=== PATIENT | male | born 1960 | race Caucasian/White ===

== ENCOUNTER 2018-02-27 13:55 | Emergency (ER) | payer OTHER, SELFPAY ==
[2018-02-27 14:10] VITALS: BP 153/90; PULSE 67; RESP 16; TEMP 36.6; O2SAT 99; BMI 27.7
--- NOTE | 2018-02-27 16:07 | ED.SKABFB ---
HPI - Skin/Abscess/Foreign Bdy <LAUREEN Peñaloza - Last Filed: 02/28/18 12:14> General Chief complaint: Skin/Abscess/Foreign Body Stated complaint: HIT ON BACK OF HEAD,GASH Time Seen by Provider: 02/27/18 16:06 Related Data Previous Rx's Medication Instructions Recorded sildenafil (antihypertensive) 5 tab PO NEEDED PRN #20 tab 01/21/17 lorazepam 0 mg PO BIDP PRN #15 tab 03/10/17 Allergies Allergy/AdvReac Type Severity Reaction Status Date / Time CAT DANDER Allergy Mild SNEZZING/IT Uncoded 11/05/17 12:23 LIZZETTE PENICILLIN Allergy Mild SWELLING Uncoded 11/05/17 12:23 Review of Systems <LAUREEN Peñaloza - Last Filed: 02/28/18 12:14> Review of Systems All systems reviewed & are unremarkable except as noted in HPI and below Constitutional Denies chills, Denies fever(s), Denies lethargy and Denies weakness Eyes Denies change in vision, Denies eye discharge, Denies irritation and Denies loss of vision ENT Ears, Nose, Mouth, and Throat: Denies change in voice, Denies neck pain and Denies sore throat Cardiovascular Denies chest pain, Denies irregular heart rhythm, Denies lightheadedness, Denies palpitations, Denies dyspnea, Denies dyspnea on exertion and Denies orthopnea Respiratory Denies cough, Denies dyspnea, Denies dyspnea on exertion and Denies wheezing Gastrointestinal Gastrointestinal: Denies abdominal pain, Denies change in bowel habits, Denies diarrhea, Denies nausea and Denies vomiting Genitourinary Denies hematuria, Denies flank pain, Denies urinary incontinence and Denies urinary urgency Musculoskeletal Denies neck pain Integumentary/Breasts Denies pruritus, Denies erythema, Denies rash and Denies wounds Neurologic Denies confusion, Denies loss of vision and Denies weakness Psychiatric Denies anxiety, Denies confusion, Denies depression, Denies homicidal ideation and Denies suicidal ideation Endocrine Denies palpitations Hematologic/Lymphatic Denies easy bruising Allergic/Immunologic Denies wheezing Exam <LAUREEN Peñaloza - Last Filed: 02/28/18 12:14> Initial Vital Signs Initial Vital Signs: Vital Signs Temperature 97.8 F 02/27/18 14:10 Pulse Rate 67 02/27/18 14:10 Respiratory Rate 16 02/27/18 14:10 Blood Pressure 153/90 H 02/27/18 14:10 Pulse Oximetry 99 02/27/18 14:10 Const General: cooperative and well developed Nutritional Appearance: well nourished Orientation: alert, awake, oriented x3 and not confused [facility] Head: normocephalic and atraumatic Ears: external ears normal and TM's normal bilaterally Nose: external nose normal and No nasal discharge Face and sinus: sinuses nontender, face symmetric, no sinus tenderness and No dry mucous membranes Mouth: oral mucosae normal and moist mucous membranes Teeth and gingiva: dentition normal Throat: tonsils normal and uvula midline Eyes General: appearance normal, both eyes and all related structures Eyelids: eyelids normal Conjunctivae: conjunctivae normal Sclera: sclerae normal Pupils: PERRL EOM: EOM intact bilaterally Neck Neck: normal visual inspection, trachea midline, No lymphadenopathy, No midline deformity and No JVD Lymphatic: No lymphedema Chest Chest: normal inspection of the chest Resp Effort & Inspection: normal respiratory effort, able to speak in complete sentences, no respiratory distress and no use of accessory muscles Auscultation: clear to auscultation bilaterally, no rales, no rhonchi and no wheezes Cardio Rate: regular rate Rhythm: regular rhythm Heart Sounds: no click, no gallops, no murmurs and no rubs Pulses: normal peripheral pulses GI Inspection: non-distended Palpation: soft, no hepatosplenomegaly, No guarding, No pulsatile mass and No tender Auscultation: normal bowel sounds Back/Spine/Pelvis Back: No CVA tenderness Cervical Spine: cervical ROM normal and No pain with cervical ROM Thoracic/Lumbar Spine: thoracic and lumbar spine normal to inspection Skin General: no rashes or lesions noted, No jaundice and No petechiae Neuro General: alert, oriented x3, gait normal and no focal motor deficits Speech: speech normal Extrem General: full ROM, no clubbing, cyanosis or edema, no pedal edema and no calf tenderness Psych Appearance: well kempt Mental Status: mental status grossly normal Attitude: cooperative Thought Content: normal and suicidality Judgment: judgment good <Héctor Mueller MD - Last Filed: 03/02/18 08:43> Initial Vital Signs Initial Vital Signs: Vital Signs Temperature 97.8 F 02/27/18 14:10 Pulse Rate 67 02/27/18 14:10 Respiratory Rate 16 02/27/18 14:10 Blood Pressure 153/90 H 02/27/18 14:10 Pulse Oximetry 99 02/27/18 14:10 Course <LAUREEN Peñaloza - Last Filed: 02/28/18 12:14> Orders Ordered: Discontinued Medications Diphtheria/Tetanus/Acell Pertussis (Adacel) 0.5 ml IM .ONCE ONE Stop: 02/27/18 16:05 Last Admin: 02/27/18 16:08 Dose: 0.5 ml Vital Signs - 8 hr 02/27/18 14:10 Temperature 97.8 F Pulse Rate 67 Respiratory Rate 16 Blood Pressure 153/90 H Pulse Oximetry 99 <Héctor Mueller MD - Last Filed: 03/02/18 08:43> Orders Ordered: Discontinued Medications Diphtheria/Tetanus/Acell Pertussis (Adacel) 0.5 ml IM .ONCE ONE Stop: 02/27/18 16:05 Last Admin: 02/27/18 16:08 Dose: 0.5 ml Vital Signs - 8 hr 02/27/18 14:10 Temperature 97.8 F Pulse Rate 67 Respiratory Rate 16 Blood Pressure 153/90 H Pulse Oximetry 99 Discharge Plan Departure Patient Disposition: Home, Self-Care Clinical Impression: Laceration Discharge Date/Time: 02/27/18 16:57 Interventions: ED Discharge Assessment Last Done: 02/27/18 16:55 Activity Restrictions/Additional Instructions: You were in seen in the [facility] Emergency Department for evaluation of injuries after striking her head on a vehicle. You have a laceration that was repaired with ana. These will need to be removed in approximately 7 days. Please read and follow all of the instructions below. Please follow up with your primary care physician in 7 days for stable removal. If you have any new symptoms or if you are at all concerned about your health please return immediately to the emergency department. If you do not have a primary care physician, please contact [facility], [facility] at [phone], [facility] at [phone], or [facility] at [phone] to arrange follow up care. If you have health insurance, please also contact your insurer for a list of accepting providers under your policy, you may contact these providers for further health care. Your care today was limited to identifying and treating emergent medical problems only. Many people have subtle differences in their test results that require follow up with their outpatient physician(s) to correctly determine if this represents a normal variation or concerning abnormality with respect to your specific health. The care given to you today was limited to identifying and treating emergent medical problems - you need to request a copy of all of your medical records from today's visit and follow up with your outpatient physician(s) to review both today's visit and your overall health. Wound Care - Ana See your primary care physician or go to urgent care in 7 days to have your ana removed. Please call ahead to check that they have a staple removal tool. * Keep your wound dry and covered with a clean bandage. * Keep the wound dry when showering for the first 24 hours. After 24 hours you may gently wash the wound with soap and water and blot dry with a clean towel. * You may cover the wound with an antibiotic ointment and a clean bandage. * Do not soak the wound (swimming, bathtubs, hotpools, etc.) until the sutures are removed. * Your wound may form a scar. This scar should partially reduce over the next year. You can minimize the scar by applying sunscreen to the scar whenever you go outside for the next year. The tissue that makes up the scar lacks the cells that allow skin to anders, this allows sunlight to damage this skin more easily. * You may take ibuprofen as directed below for pain. Call your doctor or return to the emergency department if you develop any of the following: * Redness at the wound. * Increasing pain. * Discharge, pus, or swelling at the wound. * Fevers, chills, or feeling unwell. * If you sustained a cut that could have caused a foreign body to enter your wound, please be aware that pieces of the foreign body may avoid detection during your emergency department evaluation. Some types of foreign bodies are very difficult to detect. Despite careful evaluation there is a small risk that you might have retained material in your wound. Rarely this material will lead to increasing pain, redness, swelling, discharge, pain, and infection. Please return immediately if you have any of these signs. * If you are otherwise concerned about your health. Ibuprofen (Brand Names: Motrin, Advil) * Take as directed on the bottle. * Do not take for more than 7 days. * This medication may cause a mildly upset stomach, if so take it with a small snack. Stop taking it if you have persistent abdominal pain, heartburn, or any stomach pain. Do not take this medication if you have known ulcers. * Do not take with Naproxen Sodium (brand name: Aleve) or other non-steroidal antiiflammatory medications that you may be prescribed (e.g. Diclofenac, Etodolac, Indomethicin) WARNING: This drug may infrequently cause serious (rarely fatal) bleeding from the stomach or intestines. Also, related drugs rarely have caused blood clots to form, resulting in heart attacks and strokes. This medication might also rarely cause similar problems. Talk to your doctor or pharmacist about the benefits and risks of treatment, as well as other possible medication choices. If you notice any of the following rare but very serious side effects, stop taking ibuprofen and seek immediate medical attention: black stools, persistent stomach/abdominal pain, vomit that looks like coffee grounds, chest pain, weakness on one side of the body, sudden vision changes, slurred speech. SIDE EFFECTS: Upset stomach, nausea, vomiting, heartburn, headache, diarrhea, constipation, drowsiness, and dizziness may occur. If any of these effects persist or worsen, notify your doctor or pharmacist promptly. If your doctor has directed you to use this medication, remember that he or she has judged that the benefit to you is greater than the risk of side effects. Many people using this medication do not have serious side effects. Tell your doctor immediately if any of these serious side effects occur: stomach pain, swelling of the hands or feet, sudden or unexplained weight gain, ringing in the ears (tinnitus). Tell your doctor immediately if any of these unlikely but serious side effects occur: vision changes, rapid or pounding heartbeat, easy bruising or bleeding, difficult/painful swallowing. Tell your doctor immediately if any of these highly unlikely but very serious side effects occur: change in amount of urine, severe headache, very stiff neck, mental/mood changes, persistent sore throat or fever. This drug may rarely cause serious (possibly fatal) liver disease. If you notice any of the following highly unlikely but very serious side effects, stop taking ibuprofen and consult your doctor or pharmacist immediately: yellowing eyes and skin, dark urine, unusual/extreme tiredness. An allergic reaction to this drug is unlikely, but seek immediate medical attention if it occurs. Symptoms of an allergic reaction include: rash, itching/swelling (especially of the face/tongue/throat), severe dizziness, trouble breathing. This is not a complete list of possible side effects. DRUG INTERACTIONS: Your healthcare professionals (e.g., doctor or pharmacist) may already be aware of any possible drug interactions and may be monitoring you for it. Do not start, stop or change the dosage of any medicine before checking with them first. This drug should not be used with the following medications because very serious interactions may occur: cidofovir, ketorolac. If you are currently using any of these medications listed above, tell your doctor or pharmacist before starting ibuprofen. Before using this medication, tell your doctor or pharmacist of all prescription and nonprescription/herbal products you may use, especially of: anti-platelet drugs (e.g., cilostazol, clopidogrel), oral bisphosphonates (e.g., alendronate), other medications for arthritis (e.g., aspirin, methotrexate), blood thinners (e.g., enoxaparin, heparin, warfarin), corticosteroids (e.g., prednisone), cyclosporine, desmopressin, high blood pressure drugs (including ANETTE inhibitors such as captopril, angiotensin II receptor antagonists such as losartan, and beta-blockers such as metoprolol), lithium, pemetrexed, water pills (diuretics such as furosemide, hydrochlorothiazide, triamterene). Check all prescription and nonprescription medicine labels carefully for other pain/fever drugs (NSAIDs such as aspirin, celecoxib, naproxen). These drugs are similar to ibuprofen, so taking one of these drugs while also taking ibuprofen may increase your risk of side effects. Consult your doctor or pharmacist for more details. However, if your doctor has prescribed low doses of aspirin to prevent heart attack or stroke (usually at dosages of 81-325 milligrams a day), you should continue to take the aspirin. Daily use of ibuprofen may decrease aspirin's ability to prevent heart attack/stroke. Talk to your doctor about using a different medication (e.g., acetaminophen) to treat pain/fever. If you must take ibuprofen, talk to your doctor about possibly taking immediate-release aspirin (not enteric-coated) while also taking the ibuprofen dose apart from your aspirin dose. Do not increase your daily dose of aspirin or change the way you take aspirin/other medications without your doctor's approval. This document does not contain all possible interactions. Therefore, before using this product, tell your doctor or pharmacist of all the products you use. Keep a list of all your medications with you, and share the list with your doctor and pharmacist. High Blood Pressure (Hypertension) When you were in the emergency department you had an abnormally high blood pressure. High blood pressure can be without symptoms. However high blood pressure can lead to many medical problems including kidney disease, strokes, and heart attacks. Your blood pressure may have been elevated due to pain or the stress of being in the emergency department, however half of people with an elevated blood pressure in the emergency department have retirement problems with high blood pressure. Please see your primary care physician in 2-3 days for a repeat check of your blood pressure. This may help prevent many health serious problems in the future. Please return to the emergency department if you develop any of the following: chest pain, shortness of breath, new or severe headache, changes in vision or hearing, weakness, or if you are otherwise concerned about your health. Prescriptions: No Action sildenafil (antihypertensive) 20 MG tablet 5 tab PO NEEDED PRNQty: 20 RF: 4 lorazepam 1 MG tablet PO BIDP PRNQty: 15 RF: 0 <Héctor Mueller MD - Last Filed: 03/02/18 08:43> Sign Out Provider Sign Out Attestation: The PA/PURCHASING MANAGER/SALES functioned independently for the care of this pt, I was available, but not asked to participate in care. I am unable to determine appropriateness of management without personally examining the pt.
[2018-02-27] MEDS: TET,DIPH,PERTUSS(ACELL),VAC/PF 0.5 ML SYRINGE IM (16:08)
--- NOTE | 2018-02-27 16:41 | ED.SKABFB ---
HPI - Skin/Abscess/Foreign Bdy General Chief complaint: Skin/Abscess/Foreign Body Stated complaint: HIT ON BACK OF HEAD,GASH Time Seen by Provider: 02/27/18 16:06 History of Present Illness HPI narrative: HPI 57-year-old male presents for evaluation of a 2.5 cm long laceration on the left lateral occiput after he bumped his head against the trunk of a car. Patient without LOC, lightheadedness, changes in vision or hearing, takes no anticoagulants, no antiplatelet agents, no known coagulopathies. ROS with no recent constitutional symptoms. Exam Gen: Pleasant, nontoxic-appearing, resting comfortably. HEENT: left posterior occiput with a vertically oriented 2.5 cm long laceration that is approximately 4 mm deep. No foreign bodies visualized. Otherwise NC, AT, no surrounding bony tenderness palpation, PEERL, EOMI. Resp: Unlabored respirations with a normal work of breathing. Card: Extremities warm and well perfused. GI: Non-distended. : Deferred MSK: No visible deformities, strength and tone without visually appreciable deficit. Neuro: AO x 3, no facial asymmetry, vision and hearing WNL. Heme/Lymph: Deferred Skin: Normal color with no visible lesions (other than noted above). Psych: Mood and affect appropriate. MDM Previous chart, nursing note, and vitals reviewed. A/P: 57-year-old male presents for evaluation of a 2.5 cm long laceration on the left lateral occiput after he bumped his head against the trunk of a car. Wound repaired as below. Tdap booster given. No identifiable risk factors for clinically significant head injury. Patient discharged with instructions for stable removal in 7 days. Return to care precautions provided. Laceration Repair Verbal consent obtained. Wound cleaned with ~120 mL sterile saline. No debriding of tissue required. No foreign bodies removed, entirety of wound well visualized with no remaining foreign bodies appreciated. Using a clean procedure the wound was repaired with 6 jayesh. No undermining required, patient tolerated the procedure well without apparent complications. Impression: laceration (please reference below for remainder of encounter information) Patient was notified of their elevated blood pressure and recommended to follow up with their primary care physician. As the patient is without evidence of acute end organ dysfunction no further emergent evaluation is indicated as per the 2013 [facility] clinical policy. Related Data Previous Rx's Medication Instructions Recorded doxycycline hyclate 100 mg PO BID #14 cap 01/21/17 sildenafil (antihypertensive) 5 tab PO NEEDED PRN #20 tab 01/21/17 lorazepam 0 mg PO BIDP PRN #15 tab 03/10/17 Allergies Allergy/AdvReac Type Severity Reaction Status Date / Time CAT DANDER Allergy Mild SNEZZING/IT Uncoded 11/05/17 12:23 LIZZETTE PENICILLIN Allergy Mild SWELLING Uncoded 11/05/17 12:23 PFSH Social History Smoking Status: Never smoker Exam Initial Vital Signs Initial Vital Signs: Vital Signs Temperature 97.8 F 02/27/18 14:10 Pulse Rate 67 02/27/18 14:10 Respiratory Rate 16 02/27/18 14:10 Blood Pressure 153/90 H 02/27/18 14:10 Pulse Oximetry 99 02/27/18 14:10 Course Orders Ordered: Discontinued Medications Diphtheria/Tetanus/Acell Pertussis (Adacel) 0.5 ml IM .ONCE ONE Stop: 02/27/18 16:05 Last Admin: 02/27/18 16:08 Dose: 0.5 ml Vital Signs - 8 hr 02/27/18 14:10 Temperature 97.8 F Pulse Rate 67 Respiratory Rate 16 Blood Pressure 153/90 H Pulse Oximetry 99 Discharge Plan Departure Prescriptions: No Action sildenafil (antihypertensive) 20 MG tablet 5 tab PO NEEDED PRNQty: 20 RF: 4 doxycycline hyclate 100 MG capsule 100 mg PO BID Qty: 14 RF: 0 lorazepam 1 MG tablet PO BIDP PRNQty: 15 RF: 0
[2018-02-27 16:51] VITALS: BP 157/85; PULSE 69; RESP 16; TEMP 36.1; O2SAT 98
--- NOTE | 2018-02-28 12:13 | ED_ITS ---
HPI - Skin/Abscess/Foreign Bdy <LAUREEN Peñaloza - Last Filed: 02/28/18 12:14> General Chief complaint: Skin/Abscess/Foreign Body Stated complaint: HIT ON BACK OF HEAD,GASH Time Seen by Provider: 02/27/18 16:06 Related Data Previous Rx's Medication Instructions Recorded sildenafil (antihypertensive) 5 tab PO NEEDED PRN #20 tab 01/21/17 lorazepam 0 mg PO BIDP PRN #15 tab 03/10/17 Allergies Allergy/AdvReac Type Severity Reaction Status Date / Time CAT DANDER Allergy Mild SNEZZING/IT Uncoded 11/05/17 12:23 LIZZETTE PENICILLIN Allergy Mild SWELLING Uncoded 11/05/17 12:23 Review of Systems <LAUREEN Peñaloza - Last Filed: 02/28/18 12:14> Review of Systems All systems reviewed & are unremarkable except as noted in HPI and below Constitutional Denies chills, Denies fever(s), Denies lethargy and Denies weakness Eyes Denies change in vision, Denies eye discharge, Denies irritation and Denies loss of vision ENT Ears, Nose, Mouth, and Throat: Denies change in voice, Denies neck pain and Denies sore throat Cardiovascular Denies chest pain, Denies irregular heart rhythm, Denies lightheadedness, Denies palpitations, Denies dyspnea, Denies dyspnea on exertion and Denies orthopnea Respiratory Denies cough, Denies dyspnea, Denies dyspnea on exertion and Denies wheezing Gastrointestinal Gastrointestinal: Denies abdominal pain, Denies change in bowel habits, Denies diarrhea, Denies nausea and Denies vomiting Genitourinary Denies hematuria, Denies flank pain, Denies urinary incontinence and Denies urinary urgency Musculoskeletal Denies neck pain Integumentary/Breasts Denies pruritus, Denies erythema, Denies rash and Denies wounds Neurologic Denies confusion, Denies loss of vision and Denies weakness Psychiatric Denies anxiety, Denies confusion, Denies depression, Denies homicidal ideation and Denies suicidal ideation Endocrine Denies palpitations Hematologic/Lymphatic Denies easy bruising Allergic/Immunologic Denies wheezing Exam <LAUREEN Peñaloza - Last Filed: 02/28/18 12:14> Initial Vital Signs Initial Vital Signs: Vital Signs Temperature 97.8 F 02/27/18 14:10 Pulse Rate 67 02/27/18 14:10 Respiratory Rate 16 02/27/18 14:10 Blood Pressure 153/90 H 02/27/18 14:10 Pulse Oximetry 99 02/27/18 14:10 Const General: cooperative and well developed Nutritional Appearance: well nourished Orientation: alert, awake, oriented x3 and not confused [facility] Head: normocephalic and atraumatic Ears: external ears normal and TM's normal bilaterally Nose: external nose normal and No nasal discharge Face and sinus: sinuses nontender, face symmetric, no sinus tenderness and No dry mucous membranes Mouth: oral mucosae normal and moist mucous membranes Teeth and gingiva: dentition normal Throat: tonsils normal and uvula midline Eyes General: appearance normal, both eyes and all related structures Eyelids: eyelids normal Conjunctivae: conjunctivae normal Sclera: sclerae normal Pupils: PERRL EOM: EOM intact bilaterally Neck Neck: normal visual inspection, trachea midline, No lymphadenopathy, No midline deformity and No JVD Lymphatic: No lymphedema Chest Chest: normal inspection of the chest Resp Effort & Inspection: normal respiratory effort, able to speak in complete sentences, no respiratory distress and no use of accessory muscles Auscultation: clear to auscultation bilaterally, no rales, no rhonchi and no wheezes Cardio Rate: regular rate Rhythm: regular rhythm Heart Sounds: no click, no gallops, no murmurs and no rubs Pulses: normal peripheral pulses GI Inspection: non-distended Palpation: soft, no hepatosplenomegaly, No guarding, No pulsatile mass and No tender Auscultation: normal bowel sounds Back/Spine/Pelvis Back: No CVA tenderness Cervical Spine: cervical ROM normal and No pain with cervical ROM Thoracic/Lumbar Spine: thoracic and lumbar spine normal to inspection Skin General: no rashes or lesions noted, No jaundice and No petechiae Neuro General: alert, oriented x3, gait normal and no focal motor deficits Speech: speech normal Extrem General: full ROM, no clubbing, cyanosis or edema, no pedal edema and no calf tenderness Psych Appearance: well kempt Mental Status: mental status grossly normal Attitude: cooperative Thought Content: normal and suicidality Judgment: judgment good <Héctor Mueller MD - Last Filed: 03/02/18 08:43> Initial Vital Signs Initial Vital Signs: Vital Signs Temperature 97.8 F 02/27/18 14:10 Pulse Rate 67 02/27/18 14:10 Respiratory Rate 16 02/27/18 14:10 Blood Pressure 153/90 H 02/27/18 14:10 Pulse Oximetry 99 02/27/18 14:10 Course <LAUREEN Peñaloza - Last Filed: 02/28/18 12:14> Orders Ordered: Discontinued Medications Diphtheria/Tetanus/Acell Pertussis (Adacel) 0.5 ml IM .ONCE ONE Stop: 02/27/18 16:05 Last Admin: 02/27/18 16:08 Dose: 0.5 ml Vital Signs - 8 hr 02/27/18 14:10 Temperature 97.8 F Pulse Rate 67 Respiratory Rate 16 Blood Pressure 153/90 H Pulse Oximetry 99 <Héctor Mueller MD - Last Filed: 03/02/18 08:43> Orders Ordered: Discontinued Medications Diphtheria/Tetanus/Acell Pertussis (Adacel) 0.5 ml IM .ONCE ONE Stop: 02/27/18 16:05 Last Admin: 02/27/18 16:08 Dose: 0.5 ml Vital Signs - 8 hr 02/27/18 14:10 Temperature 97.8 F Pulse Rate 67 Respiratory Rate 16 Blood Pressure 153/90 H Pulse Oximetry 99 Discharge Plan Departure Patient Disposition: Home, Self-Care Clinical Impression: Laceration Discharge Date/Time: 02/27/18 16:57 Interventions: ED Discharge Assessment Last Done: 02/27/18 16:55 Activity Restrictions/Additional Instructions: You were in seen in the [facility] Emergency Department for evaluation of injuries after striking her head on a vehicle. You have a laceration that was repaired with ana. These will need to be removed in approximately 7 days. Please read and follow all of the instructions below. Please follow up with your primary care physician in 7 days for stable removal. If you have any new symptoms or if you are at all concerned about your health please return immediately to the emergency department. If you do not have a primary care physician, please contact [facility], [facility] at [phone], [facility] at [phone], or [facility] at [phone] to arrange follow up care. If you have health insurance, please also contact your insurer for a list of accepting providers under your policy, you may contact these providers for further health care. Your care today was limited to identifying and treating emergent medical problems only. Many people have subtle differences in their test results that require follow up with their outpatient physician(s) to correctly determine if this represents a normal variation or concerning abnormality with respect to your specific health. The care given to you today was limited to identifying and treating emergent medical problems - you need to request a copy of all of your medical records from today's visit and follow up with your outpatient physician(s) to review both today's visit and your overall health. Wound Care - Ana See your primary care physician or go to urgent care in 7 days to have your ana removed. Please call ahead to check that they have a staple removal tool. * Keep your wound dry and covered with a clean bandage. * Keep the wound dry when showering for the first 24 hours. After 24 hours you may gently wash the wound with soap and water and blot dry with a clean towel. * You may cover the wound with an antibiotic ointment and a clean bandage. * Do not soak the wound (swimming, bathtubs, hotpools, etc.) until the sutures are removed. * Your wound may form a scar. This scar should partially reduce over the next year. You can minimize the scar by applying sunscreen to the scar whenever you go outside for the next year. The tissue that makes up the scar lacks the cells that allow skin to anders, this allows sunlight to damage this skin more easily. * You may take ibuprofen as directed below for pain. Call your doctor or return to the emergency department if you develop any of the following: * Redness at the wound. * Increasing pain. * Discharge, pus, or swelling at the wound. * Fevers, chills, or feeling unwell. * If you sustained a cut that could have caused a foreign body to enter your wound, please be aware that pieces of the foreign body may avoid detection during your emergency department evaluation. Some types of foreign bodies are very difficult to detect. Despite careful evaluation there is a small risk that you might have retained material in your wound. Rarely this material will lead to increasing pain, redness, swelling, discharge, pain, and infection. Please return immediately if you have any of these signs. * If you are otherwise concerned about your health. Ibuprofen (Brand Names: Motrin, Advil) * Take as directed on the bottle. * Do not take for more than 7 days. * This medication may cause a mildly upset stomach, if so take it with a small snack. Stop taking it if you have persistent abdominal pain, heartburn, or any stomach pain. Do not take this medication if you have known ulcers. * Do not take with Naproxen Sodium (brand name: Aleve) or other non-steroidal antiiflammatory medications that you may be prescribed (e.g. Diclofenac, Etodolac, Indomethicin) WARNING: This drug may infrequently cause serious (rarely fatal) bleeding from the stomach or intestines. Also, related drugs rarely have caused blood clots to form, resulting in heart attacks and strokes. This medication might also rarely cause similar problems. Talk to your doctor or pharmacist about the benefits and risks of treatment, as well as other possible medication choices. If you notice any of the following rare but very serious side effects, stop taking ibuprofen and seek immediate medical attention: black stools, persistent stomach/abdominal pain, vomit that looks like coffee grounds, chest pain, weakness on one side of the body, sudden vision changes, slurred speech. SIDE EFFECTS: Upset stomach, nausea, vomiting, heartburn, headache, diarrhea, constipation, drowsiness, and dizziness may occur. If any of these effects persist or worsen, notify your doctor or pharmacist promptly. If your doctor has directed you to use this medication, remember that he or she has judged that the benefit to you is greater than the risk of side effects. Many people using this medication do not have serious side effects. Tell your doctor immediately if any of these serious side effects occur: stomach pain, swelling of the hands or feet, sudden or unexplained weight gain, ringing in the ears ( tinnitus). Tell your doctor immediately if any of these unlikely but serious side effects occur: vision changes, rapid or pounding heartbeat, easy bruising or bleeding, difficult/painful swallowing. Tell your doctor immediately if any of these highly unlikely but very serious side effects occur: change in amount of urine, severe headache, very stiff neck, mental/mood changes, persistent sore throat or fever. This drug may rarely cause serious (possibly fatal) liver disease. If you notice any of the following highly unlikely but very serious side effects, stop taking ibuprofen and consult your doctor or pharmacist immediately: yellowing eyes and skin, dark urine, unusual/extreme tiredness. An allergic reaction to this drug is unlikely, but seek immediate medical attention if it occurs. Symptoms of an allergic reaction include: rash, itching/ swelling (especially of the face/tongue/throat), severe dizziness, trouble breathing. This is not a complete list of possible side effects. DRUG INTERACTIONS: Your healthcare professionals (e.g., doctor or pharmacist) may already be aware of any possible drug interactions and may be monitoring you for it. Do not start, stop or change the dosage of any medicine before checking with them first. This drug should not be used with the following medications because very serious interactions may occur: cidofovir, ketorolac. If you are currently using any of these medications listed above, tell your doctor or pharmacist before starting ibuprofen. Before using this medication, tell your doctor or pharmacist of all prescription and nonprescription/herbal products you may use, especially of: anti-platelet drugs (e.g., cilostazol, clopidogrel), oral bisphosphonates (e.g., alendronate), other medications for arthritis (e.g., aspirin, methotrexate), blood thinners (e.g., enoxaparin, heparin, warfarin), corticosteroids (e.g., prednisone), cyclosporine, desmopressin, high blood pressure drugs (including ANETTE inhibitors such as captopril, angiotensin II receptor antagonists such as losartan, and beta- blockers such as metoprolol), lithium, pemetrexed, water pills (diuretics such as furosemide, hydrochlorothiazide, triamterene). Check all prescription and nonprescription medicine labels carefully for other pain/fever drugs ( NSAIDs such as aspirin, celecoxib, naproxen). These drugs are similar to ibuprofen, so taking one of these drugs while also taking ibuprofen may increase your risk of side effects. Consult your doctor or pharmacist for more details. However, if your doctor has prescribed low doses of aspirin to prevent heart attack or stroke (usually at dosages of 81-325 milligrams a day), you should continue to take the aspirin. Daily use of ibuprofen may decrease aspirin 's ability to prevent heart attack/stroke. Talk to your doctor about using a different medication (e.g., acetaminophen) to treat pain/fever. If you must take ibuprofen, talk to your doctor about possibly taking immediate-release aspirin (not enteric-coated) while also taking the ibuprofen dose apart from your aspirin dose. Do not increase your daily dose of aspirin or change the way you take aspirin/other medications without your doctor's approval. This document does not contain all possible interactions. Therefore, before using this product, tell your doctor or pharmacist of all the products you use. Keep a list of all your medications with you, and share the list with your doctor and pharmacist. High Blood Pressure (Hypertension) When you were in the emergency department you had an abnormally high blood pressure. High blood pressure can be without symptoms. However high blood pressure can lead to many medical problems including kidney disease, strokes, and heart attacks. Your blood pressure may have been elevated due to pain or the stress of being in the emergency department, however half of people with an elevated blood pressure in the emergency department have long term care pharmacist problems with high blood pressure. Please see your primary care physician in 2-3 days for a repeat check of your blood pressure. This may help prevent many health serious problems in the future. Please return to the emergency department if you develop any of the following: chest pain, shortness of breath, new or severe headache, changes in vision or hearing, weakness, or if you are otherwise concerned about your health. Prescriptions: No Action sildenafil (antihypertensive) 20 MG tablet 5 tab PO NEEDED PRNQty: 20 RF: 4 lorazepam 1 MG tablet PO BIDP PRNQty: 15 RF: 0 <Héctor Mueller MD - Last Filed: 03/02/18 08:43> Sign Out Provider Sign Out Attestation: The PA/MINER functioned independently for the care of this pt, I was available, but not asked to participate in care. I am unable to determine appropriateness of management without personally examining the pt.
== END 2018-02-27 16:57 | disposition home or self-care (01) ==
PROVIDERS: Emergency Provider Emergency Medicine; Family Provider Family Medicine; PCP Family Medicine
DX: S01.01XA Laceration without foreign body of scalp, initial encounter (principal); W20.8XXA Other cause of strike by thrown, projected or falling object, initial encounter; Y99.0 Civilian activity done for income or pay
CPT/HCPCS: 12001; 90471; 99282; 99283; 90715

== ENCOUNTER 2018-03-06 09:25 | Emergency (ER) | payer OTHER, SELFPAY ==
[2018-03-06 09:45] VITALS: BP 156/85; PULSE 72; RESP 16; TEMP 37.1; O2SAT 98
--- NOTE | 2018-03-06 09:48 | ED.WOUNDLAC ---
HPI - Wound/Laceration General Chief Complaint: Wound/Laceration Stated Complaint: ROMOVAL OF JAYESH ON TOP OF HEAD Time Seen by Provider: 03/06/18 09:48 Source: patient Mode of arrival: ambulatory Limitations: no limitations History of Present Illness HPI narrative: The patient is here requesting staple removal. He was seen here last week due to an occipital scalp laceration. The back catch of a van door hit him in the back of the head. He is not having headache, dizziness or visual changes. He feels normal. He has had no issues with the laceration. Related Data Previous Rx's Medication Instructions Recorded sildenafil (antihypertensive) 5 tab PO NEEDED PRN #20 tab 01/21/17 lorazepam 0 mg PO BIDP PRN #15 tab 03/10/17 Allergies Allergy/AdvReac Type Severity Reaction Status Date / Time CAT DANDER Allergy Mild SNEZZING/IT Uncoded 11/05/17 12:23 LIZZETTE PENICILLIN Allergy Mild SWELLING Uncoded 11/05/17 12:23 Review of Systems Constitutional Denies headache(s), Denies lethargy and Denies weakness Eyes Denies blurry vision and Denies photophobia ENT Ears, Nose, Mouth, and Throat: Denies headache(s) Neurologic Denies headache(s), Denies focal weakness and Denies weakness PFSH Social History Smoking Status: Never smoker Exam Initial Vital Signs Initial Vital Signs: Vital Signs Temperature 98.8 F 03/06/18 09:45 Pulse Rate 72 03/06/18 09:45 Respiratory Rate 16 03/06/18 09:45 Blood Pressure 156/85 H 03/06/18 09:45 Pulse Oximetry 98 03/06/18 09:45 Const General: cooperative and well developed Nutritional Appearance: well nourished Orientation: alert, awake, oriented x3 and not confused HENMT Head: other Eyes Pupils: PERRL EOM: EOM intact bilaterally Neuro General: alert, awake, oriented x3 and no focal motor deficits Course Hospital Course: The jayesh in the occipital laceration removed by his nurse. Bacitracin was applied to the site prior to discharge. Vital Signs - 8 hr 03/06/18 09:45 Temperature 98.8 F Pulse Rate 72 Respiratory Rate 16 Blood Pressure 156/85 H Pulse Oximetry 98 Discharge Plan Departure Patient Disposition: Home, Self-Care Clinical Impression: Encounter for removal of jayesh Instructions: How to Care for a Surgical Wound-[place] Prescriptions: No Action sildenafil (antihypertensive) 20 MG tablet 5 tab PO NEEDED PRNQty: 20 RF: 4 lorazepam 1 MG tablet PO BIDP PRNQty: 15 RF: 0
== END 2018-03-06 10:12 | disposition home or self-care (01) ==
PROVIDERS: Emergency Provider Emergency Medicine; Family Provider Family Medicine; PCP Family Medicine
DX: S01.01XD Laceration without foreign body of scalp, subsequent encounter (principal); W22.8XXD Striking against or struck by other objects, subsequent encounter; Z48.02 Encounter for removal of sutures
CPT/HCPCS: 99281; 99283

== ENCOUNTER → 2024-10-07 12:54 | Outpatient (CLI) | payer OTHER, SELFPAY ==
--- NOTE | 2024-10-07 12:56 | DI.RAD.S_ITS ---
PROCEDURE: XR KNEE RT 3V INDICATIONS: Twist, Medial joint tender, pn w/ wght bear TECHNIQUE: 3 views of the knee were acquired. COMPARISON: None. FINDINGS: Bones: No fractures or dislocations. Mild tricompartmental osteoarthritis more notably in medial femoral tibial compartment. No significant patellar subluxation. No suspicious bony lesions. Soft tissues: No joint effusion. No suspicious soft tissue calcifications. IMPRESSION: No acute right knee fracture or dislocation. Mild tricompartmental osteoarthritis. No significant joint effusion. Dictated by: Blake Pugh M.D. on 10/07/2024 at 13:38 Approved by: Blake Pugh M.D. on 10/07/2024 at 13:39
== END ==
PROVIDERS: Referring Provider Student in an Organized Health Care Education/Training Program; Visit Provider Student in an Organized Health Care Education/Training Program
DX: S83.91XA Sprain of unspecified site of right knee, initial encounter (principal); M17.11 Unilateral primary osteoarthritis, right knee; X58.XXXA Exposure to other specified factors, initial encounter
CPT/HCPCS: 73562